=== PATIENT | female | born 1975 | race Caucasian/White ===

== ENCOUNTER 2020-01-14 13:27 | Emergency (ER) | payer MEDICAID ==
[~2020-01-14] VITALS: Ht 149.9 cm; Wt 65.3 kg
[2020-01-14 13:42] VITALS: Ht 149.9 cm; Wt 65.3 kg
[2020-01-14 14:10] VITALS: BP 125/75
== END 2020-01-14 14:10 | disposition home or self-care (01) ==
LOC: ED 13:27
DX: J02.9 Acute pharyngitis, unspecified (principal)

== ENCOUNTER 2020-01-26 11:22 | Emergency (ER) | payer MEDICAID, SELFPAY ==
[~2020-01-26] VITALS: Ht 152.4 cm; Wt 63.5 kg
[2020-01-26 12:44] VITALS: Ht 152.4 cm; Wt 63.5 kg
[2020-01-26 13:10] VITALS: BP 127/76
== END 2020-01-26 13:10 | disposition home or self-care (01) ==
LOC: ED 11:22
DX: J02.9 Acute pharyngitis, unspecified (principal)
CPT/HCPCS: 36415; Q0092

== ENCOUNTER 2020-04-10 11:42 | Emergency (ER) | payer MEDICAID ==
[~2020-04-10] VITALS: Ht 157.5 cm; Wt 49.9 kg
[2020-04-10 11:44] VITALS: Ht 157.5 cm; Wt 49.9 kg
[2020-04-10 12:56] LABS: FREE T4 1.05 ng/dL (0.76-1.46); FREE THYROXINE INDEX 2.2 ug/dL (1.4-4.5); T4(THYROXINE) 7.3 ug/dL (4.7-13.3)
[2020-04-10 13:17] LABS: T3 TOTAL 1.29 ng/mL
[2020-04-10 13:20] VITALS: BP 128/67
== END 2020-04-10 13:20 | disposition home or self-care (01) ==
LOC: ED 11:42
PROVIDERS: Specialist
DX: B27.90 Infectious mononucleosis, unspecified without complication (principal)
CPT/HCPCS: 84439; 86308

== ENCOUNTER 2020-04-13 11:42 | Emergency (ER) | payer MEDICAID, SELFPAY ==
[~2020-04-13] VITALS: Ht 165.1 cm; Wt 63.5 kg
[2020-04-13 11:56] VITALS: Ht 165.1 cm; Wt 63.5 kg
[2020-04-13 12:39] VITALS: BP 130/79
== END 2020-04-13 12:39 | disposition home or self-care (01) ==
LOC: ED 11:42
DX: U07.1 COVID-19 (principal)
CPT/HCPCS: U0003-CS

== ENCOUNTER 2020-05-15 11:57 | Emergency (ER) | payer MEDICAID, SELFPAY ==
[~2020-05-15] VITALS: Ht 160 cm; Wt 63.5 kg
[2020-05-15 12:00] VITALS: Ht 160 cm; Wt 63.5 kg
[2020-05-15 12:56] LABS: BASOPHIL % 0.3 % (0-2); PLATELET COUNT 237 x10^3mcL (130-400); RED CELL DISTRIBUTION WIDTH 12.5 % (11.5-14.5)
[2020-05-15 14:29] LABS: CALCIUM 9.1 mg/dL (8.5-10.1); CARBON DIOXIDE 28.3 mmol/L (21-32); CHLORIDE SERUM 99 mmol/L (98-107); CREATININE SERUM 0.6 mg/dL (0.6-1.0); GFR1 > 60 mL/min; GLUCOSE SERUM 249 mg/dL (74-106); POTASSIUM SERUM 3.2 mmol/L (3.5-5.1); SODIUM SERUM 138 mmol/L (136-145)
[2020-05-15 14:31] LABS: ALBUMIN 3.8 g/dL (3.4-5.0); ALKALINE PHOSPHATASE 103 U/L (46-116); ALT/SGPT 85 U/L (14-59); AST/SGOT 38 U/L (15-37); BILIRUBIN TOTAL 0.4 mg/dL (0.20-1.00)
[2020-05-15 14:55] VITALS: BP 158/78
== END 2020-05-15 14:55 | disposition home or self-care (01) ==
LOC: ED
PROVIDERS: Emergency Medicine
DX: R06.02 Shortness of breath (principal); R07.89 Other chest pain; R53.83 Other fatigue; R05 Cough
CPT/HCPCS: 85378; Q0092; Q9967